=== PATIENT | female | born 2000 | race African-American/Black ===

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

== ENCOUNTER 2021-07-22 12:14 | Emergency (ER) | payer SELFPAY ==
[~2021-07-22] VITALS: Ht 177.8 cm; Wt 100.0 kg
[2021-07-22 12:21] VITALS: BP 135/72
[2021-07-22] MEDS ORDERED: ONDANSETRON 4MG ODT PO STA (13:47)
[2021-07-22 14:29] LABS: HEMOGLOBIN. 14.4 g/dL (12.0-16.0); MEAN CORPUSCULAR HEMOGLOBIN 28.4 pg (28.0-32.0); MEAN CORPUSCULAR VOLUME 87.1 fL (81.0-99.0); MEAN PLATELET VOLUME 9.2 fl (7.4-10.4); PLATELET 248 x1000/uL (130-400); RED BLOOD CELL COUNT 5.05 mill/uL (4.2-5.4); RED CELL DISTRIBUTION WIDTH 14.1 % (11.6-14.6)
[2021-07-22 14:36] LABS: CHLORIDE 107 mEq/L (98-107)
[2021-07-22 14:42] LABS: ETHANOL BLOOD < 10 mg/dL
[2021-07-22 14:50] LABS: HCG SCREEN NEGATIVE
[2021-07-22 15:26] LABS: CLARITY URINE CLOUDY (CLEAR); COLOR URINE YELLOW (YELLOW); KETONES URINE TRACE (NEGATIVE); LEUKOCYTE ESTERASE URINE NEGATIVE (NEGATIVE); NITRITE URINE NEGATIVE (NEGATIVE); OCCULT BLOOD URINE NEGATIVE (NEGATIVE); PH URINE 7.5 (4.5-8.0); PROTEIN URINE NEGATIVE (NEGATIVE); SPECIFIC GRAVITY URINE 1.026 (1.005-1.030); UROBILINOGEN URINE 0.2 E.U./dL (0.2-1.0)
[2021-07-22 15:47] LABS: *AMPHETAMINES SCREEN URINE NEGATIVE (NEGATIVE); *BARBITURATES SCREEN URINE NEGATIVE (NEGATIVE); *BENZODIAZEPINES SCREEN URINE NEGATIVE (NEGATIVE); *COCAINE SCREEN URINE NEGATIVE (NEGATIVE); METHADONE URINE SCREEN NEGATIVE (NEGATIVE); OPIATES URINE SCREEN NEGATIVE (NEGATIVE); PHENCYCLIDINE URINE SCREEN NEGATIVE (NEGATIVE)
[2021-07-22 15:57] LABS: CANNABINOID URINE SCREEN PRESUMTIVE POSITIVE (NEGATIVE)
[2021-07-22] MEDS ORDERED: ONDA4TAB5 MT (16:07)
[2021-07-22 17:16] LABS: PLATELET ESTIMATE NORMAL
== END 2021-07-22 16:17 | disposition home or self-care (01) ==
LOC: ER 12:14
DX: R11.2 Nausea with vomiting, unspecified (principal)
CPT/HCPCS: 36415; 80053; 80305; 80320; 81003; 83690; 84703; 85025; 99283; Q0162; G0480

== ENCOUNTER 2024-01-04 16:17 | Emergency (ER) | payer OTHER ==
[~2024-01-04] VITALS: Ht 167.6 cm; Wt 104.0 kg
[~2024-01-04 16:17] MED LIST: ONDA4TAB5 MT
[2024-01-04 16:19] VITALS: TEMP 98.3; O2SAT 100
[2024-01-04] MEDS ORDERED: KETOROLAC 30MG/ML VIAL IV STA (16:46)
[2024-01-04] MEDS ORDERED: KETOROLAC 30MG/ML VIAL IV NR (16:46)
[2024-01-04 18:26] LABS: BASOPHILS % 0.3 % (0.0-2.0); DIFFERENTIAL COMMENT 0; EOSINOPHILS % 2.3 % (0.0-5.0); LYMPHOCYTES % 22.8 % (20.0-50.0); MEAN CORPUSCULAR HEMOGLOBIN 25.9 pg (28.0-32.0); MEAN CORPUSCULAR HGB CONC 32.4 g/dL (31.0-37.0); MEAN CORPUSCULAR VOLUME 79.9 fL (81.0-99.0); MEAN PLATELET VOLUME 8.6 fl (7.4-10.4); MONOCYTES % 12.6 % (2.0-8.0); PLATELET 263 x1000/uL (130-400); RED BLOOD CELL COUNT 4.63 mill/uL (4.2-5.4); RED CELL DISTRIBUTION WIDTH 15.6 % (11.6-14.6); WHITE BLOOD COUNT 6.4 x1000/uL (4.5-11.0)
[2024-01-04 18:32] LABS: CHLORIDE 110 mEq/L (98-107); POTASSIUM 4.1 mEq/L (3.5-5.1); SODIUM 141 mEq/L (136-145)
[2024-01-04 18:33] LABS: CALCIUM 9.5 mg/dL (8.7-10.4); CARBON DIOXIDE 25 mEq/L (21-32)
[2024-01-04 18:38] LABS: CREATININE 0.8 mg/dL (0.6-1.0); GLUCOSE 89 mg/dL (70-105); TROPONIN I HIGH SENSITIVITY 5 ng/L (3.0-34); UREA NITROGEN BLOOD 10 mg/dL (9-23)
[2024-01-04 18:39] LABS: D-DIMER 1.89 mg/L FEU (<0.50); INR 0.9; PARTIAL THROMBOPLASTIN TIME 23.5 sec (23.4-31.0); PROTHROMBIN TIME 10.6 sec (9.6-11.0)
[2024-01-04 18:44] LABS: HCG SCREEN NEGATIVE
[2024-01-04] MEDS: SODIUM CHLORIDE 0.9% 1,000 ML IV ONE (19:18)
[2024-01-04] MEDS: KETOROLAC 15MG/ML VIAL IV NR (19:18)
[2024-01-04] MEDS ORDERED: IBUP-2028 MT (20:12)
[2024-01-04] MEDS ORDERED: IOHEXOL-350 100 ML BOTTLE ONE ×2 (20:31→23:34)
[2024-01-04 21:30] VITALS: BP 138/72; PULSE 77; RESP 16; O2SAT 100
== END 2024-01-04 22:49 | disposition home or self-care (01) ==
LOC: ER 16:17
DX: R55 Syncope and collapse (principal); K13.0 Diseases of lips
CPT/HCPCS: 80048; 84703; 85025; 85379; 85610; 85730; 84484; 36415; 71045; 73562; 71275; 70450; 70486; 93970; 93005; 96361; 96374; 99285; Q9967; J1885; J7030; Z7610